=== PATIENT | female | born 1980 | race Caucasian/White ===

== ENCOUNTER 2020-11-11 06:54 | Outpatient (NON) | payer OTHER, SELFPAY ==
[2020-11-11 22:09] LABS: SARS-CoV-2 RNA PCR Negative
== END 2020-11-11 06:55 ==
LOC: ANHCOVIDDT 07:02
PROVIDERS: PCP Family Medicine; Visit Provider Nurse Practitioner Family
DX: R05 Cough (principal); Z20.828 Contact with and (suspected) exposure to other viral communicable diseases
CPT/HCPCS: 87635; C9803; U0003

== ENCOUNTER 2021-03-31 16:13 | Outpatient (CLI) | payer OTHER, SELFPAY ==
--- NOTE | ~2021-03-31 | XR_ITS ---
XR chest 2V DATE: 03/31/2021 16:29 INDICATION: Right-sided chest TECHNIQUE: PA and lateral chest COMPARISON: 11/01/2016 PA and lateral chest FINDINGS: Normal heart size. No hilar or mediastinal enlargement. No pulmonary infiltrate or consolid ation, pleural effusion or pulmonary vascular congestion or pneumothorax. Osteopenia. IMPRESSION: No active cardiopulmonary disease Reviewed, dictated and finalized at location B.
== END 2021-03-31 16:14 | disposition home or self-care (01) ==
LOC: ANHIMG 16:16
PROVIDERS: PCP Family Medicine; Visit Provider Family Medicine
DX: R07.89 Other chest pain (principal)
CPT/HCPCS: 71046

== ENCOUNTER 2021-04-19 08:41 | Outpatient (CLI) | payer OTHER, SELFPAY ==
--- NOTE | ~2021-04-19 | XR_ITS ---
EXAMINATION: XR barium swallow EXAM DATE: 04/19/2021 09:21 INDICATION: R13.10 - Dysphagia, unspecified . Inhaled sawdust and shortness of breath since. TECHNIQUE: Standard thick followed by thin contrast barium esophagram examination was performed by Dr Janina Bustos, radiologist. Pulsed dose reduction fluoroscopy was used with fluoroscopic time of 0.5 minutes. The DAP for this procedure was 0.3 Gycm2. A total of 69 images obtained for the exam. Th ere is no prior study for comparison. FINDINGS: The pharynx is symmetric and without evidence of mass lesion or mucosal irregularity. Ther e is no esophageal stricture or mass identified. There are no esophageal diverticula. Gastroesophag eal junction is normal in appearance. IMPRESSION: Normal exam. Reviewed, dictated and finalized at location A. IMPRESSION: Normal exam.
== END 2021-04-19 08:42 | disposition home or self-care (01) ==
PROVIDERS: PCP Family Medicine; Visit Provider Otolaryngology
DX: R13.10 Dysphagia, unspecified (principal)
CPT/HCPCS: 74220

== ENCOUNTER 2021-07-31 16:57 | Emergency (ER) | payer OTHER, SELFPAY ==
--- NOTE | ~2021-07-31 | CT_ITS ---
EXAMINATION: CT abdomen pelvis wo con DATE: 07/31/2021 17:50 INDICATION: Right lower quadrant abdominal pain TECHNIQUE: Computed tomography (CT) of the abdomen and pelvis was performed without intravenous contr ast. Automated exposure control and iterative reconstruction technique were employed. Exam dose: 467 .81 mGy-cm total exam DLP. COMPARISON: January 08, 2019 CT abdomen pelvis FINDINGS: The lung bases are clear. Normal heart size. No pericardial or pleural effusion. The liver, gallbladder, spleen, pancreas, and adrenal glands and kidneys are unremarkable on this brambila ited noncontrast examination. There is an IUD within the uterus. 3.6 cm left adnexal dermoid containing fat and calcification. Normal caliber of the abdominal aorta. No intraperitoneal or retroperitoneal or pelvic mass lesion or adenopathy or ascites is noted otherwise. The urinary bladder is unremarkable. Normal appendix. There is a prominent amount of fecal material within the colon but no bowel obstruct ion, bowel wall thickening, pneumatosis or intraperitoneal free air. Included skeletal structures are unremarkable. IMPRESSION: 3.6 cm left sided dermoid IUD within uterus Normal appendix Reviewed, dictated and finalized at Location A. Reviewed, dictated and finalized at location A.
[2021-07-31 16:58] VITALS: BP 130/80; PULSE 63; RESP 20; TEMP 36.5; O2SAT 100
--- NOTE | 2021-07-31 17:04 | ED.ABDPAIN ---
HPI - Abdominal Pain General Chief Complaint: Abdominal Pain Stated Complaint: abd pain Time Seen by Provider: 07/31/21 17:01 Source: RN notes reviewed History of Present Illness HPI narrative: Patient presents emergency department from home for abdominal pain. Patient states the pain began yesterday and is located right lower quadrant. Pain is described as sharp and stabbing does not radiate. Patient states that the makes the pain better or worse. States she tried taking ibuprofen at home with no relief. She denies any fevers or chills, chest pain, shortness of breath, nausea vomiting diarrhea or any other symptoms Related Data Home Medications Medication Instructions Recorded Confirmed levonorgestrel 20 mcg/24 hours (6 1 device I-UTERINE ONCE 10/14/19 07/09/21 yrs) 52 mg intrauterine device Allergies Allergy/AdvReac Type Severity Reaction Status Date / Time ciprofloxacin Allergy Unknown rash Verified 07/09/21 13:04 clindamycin Allergy Unknown unknown Verified 07/09/21 13:04 doxycycline Allergy Unknown abdominal Verified 07/09/21 13:04 pain erythromycin base Allergy Unknown rash Verified 07/09/21 13:04 iodine Allergy Unknown rash Verified 07/09/21 13:04 penicillin G Allergy Unknown rash Verified 07/09/21 13:04 Penicillins Allergy Unknown Skin Verified 07/09/21 13:04 irritation Review of Systems Review of Systems: Gen.: Denies fevers or chills ENT: Denies congestion Respiratory: Denies shortness of breath or cough CV: Denies chest pain or palpitations GI: See HPI denies burning, urgency, frequency or hematuria Musculoskeletal: Denies back pain or muscle pain Neuro: Denies numbness, tingling, weakness or focal weakness Skin: Denies rash Except as documented, all other systems reviewed and negative FORMERLY [facility], [facility] Past Medical History Medical History HLD (hyperlipidemia) Surgical History Surgical History H/O ovarian cystectomy Family History Family History Mother Carcinoma of colon Family history of cardiovascular disease Father Family history of malignant neoplasm of kidney Social History Social History (Reviewed 07/31/21 @ 17:05 by CHAPIS Isbell Smoking status: Never smoker Second hand tobacco smoke exposure: No Alcohol intake: never Substance use: never Substance use type: does not use Gender identity (if verbalized by the patient): Female Exam Narrative: APPEARANCE: No acute distress, nontoxic, resting in bed HEENT: Normocephalic, atraumatic, OMM RESPIRATORY: No respiratory distress, clear to auscultation bilaterally with no rhonchi wheezing or rales CARDIOVASCULAR: RRR s murmur ABDOMINAL: Soft nondistended tender palpation right lower quadrant no tenderness in right upper quadrant, left lower quadrant left lower quadrant no rebound or guarding MUSCULOSKELETAl: Moves all extremities. No clubbing, cyanosis or edema. NEURO: Awake and alert. Following commands, speech normal, no focal deficits SKIN:: Warm, dry. Normal Color PSYCHIATRIC: Normal affect/mood Course Course Emergency Course: Patient states that they are feeling much better at this time. States abdominal pain has improved. Repeat abdominal exam shows the patient's abdomen to be soft with no surgical abdomen present. Discussed with patient results of workup and diagnosis. Discussed need for follow-up with primary care physician, reasons to return to the emergency department in proper use of medication. Patient understands and agrees to current treatment plan. Discussed with patient dermoid cyst she is followed by Dr. Maxwell and will follow up Vital Signs Vital signs: Vital Signs Temperature 97.7 F 07/31/21 16:58 Pulse Rate 63 07/31/21 16:58 Respiratory Rate 20 07/31/21 16:58 Blood Pressure 130/80 07/31/21 16:58 Pulse Oximetry
[2021-07-31] MEDS: SODIUM CHLORIDE 0.9% IV 1,000 ML 999 ML IV CONT (17:50)
[2021-07-31 18:01] LABS: Basophils Percent Auto 0.4 % (0.2-1.2); Eosinophils Absolute Auto 0.3 K/mm3 (0-0.3); Eosinophils Percent Auto 3.1 % (0-4.4); Hematocrit 43.5 % (37.0-47.0); Hemoglobin 14.4 g/dL (12.0-15.0); Immature Granulocyte Absolute 0.03 K/mm3 (0.00-0.031); Immature Granulocyte Percent A 0.4 % (0-0.5); Lymphocytes Absolute Auto 2.46 K/mm3 (0.9-3.2); Lymphocytes Percent Auto 30.5 % (18.3-44.2); Mean Corpuscular HGB Conc 33.1 g/dl (32-36); Mean Corpuscular Hemoglobin 31.2 pg (26-34); Mean Corpuscular Volume 94.2 fl (80-100); Mean Platelet Volume 10.3 fl (7.4-10.4); Monocytes Absolute Auto 0.5 K/mm3 (0.1-0.6); Monocytes Percent Auto 5.8 % (2.6-8.5); Neutrophils Absolute Auto 4.8 K/mm3 (1.3-6.7); Neutrophils Percent Auto 59.8 % (45.5-73.1); Platelet Count Result 216 k/mm3 (150-375); Red Blood Count 4.62 M/mm3 (4.2-5.4); Red Cell Distribution Width 12.7 % (11.5-14.5); White Blood Count 8.1 K/mm3 (4.5-10.0)
[2021-07-31 18:14] LABS: Alanine Aminotransferase 12 U/L (4-35); Albumin Level 4.4 g/dL (3.5-5.1); Alkaline Phosphatase 59 U/L (38-126); Anion Gap 8 mmol/L (8-16); Aspartate Amino Transferase 23 U/L (14-36); Bilirubin,Total 0.7 mg/dL (0.2-1.3); Blood Urea Nitrogen 12 mg/dL (7-17); Calcium 9.1 mg/dL (8.4-10.2); Carbon Dioxide 25 mmol/L (22-30); Chloride 106 mmol/L (98-107); Estimated CRCL calculation 113 ml/min; Estimated Glomerular Filt Rate > 60; Glucose 107 mg/dL (65-110); Lipase 101 U/L (23-300); Potassium 3.4 mmol/L (3.4-5.0); Sodium 139 mmol/L (137-145)
[2021-07-31 18:54] LABS: Add Urine Microscopic? YES; Appearance Urine Clear (Clear); Bilirubin Urine Negative (Negative); Blood Urine 1+ (Negative); Color Urine Straw (Yellow); Glucose Urine UA Negative (Negative); Ketones Urine Negative (Negative); Leukocyte Esterase Ur Negative LEU/UL (Negative); Nitrate Urine Negative (Negative); Protein Urine Negative (Negative); Squamous Epithelial Cell Urine Rare /hpf (Few); Urobilinogen Urine Negative mg/dL (<2.0); WBC Urine 0-3 /hpf
[2021-07-31 19:30] VITALS: BP 110/66; PULSE 66; RESP 18; O2SAT 100
[2021-07-31 20:20] VITALS: BP 109/59; PULSE 66; RESP 18; TEMP 37; O2SAT 100
== END 2021-07-31 20:20 | disposition home or self-care (01) ==
PROVIDERS: Emergency Provider Emergency Medicine; PCP Family Medicine
DX: R10.31 Right lower quadrant pain (principal); D27.1 Benign neoplasm of left ovary; E78.5 Hyperlipidemia, unspecified; Z97.5 Presence of (intrauterine) contraceptive device
CPT/HCPCS: 36415; 74176; 80053; 81001; 81025; 83690; 85025; 96361; 96365; 99284; J0131; J7030

== ENCOUNTER → 2021-09-02 02:57 | Outpatient (CLI) | payer OTHER, SELFPAY ==
[2021-09-02 17:42] LABS: SARS-CoV-2 RNA PCR Negative
== END ==
PROVIDERS: PCP Family Medicine; Visit Provider Nurse Practitioner Family
DX: R50.9 Fever, unspecified (principal); Z20.822 Contact with and (suspected) exposure to COVID-19
CPT/HCPCS: C9803; U0003; U0005

== ENCOUNTER → 2021-11-18 09:25 | Outpatient (CLI) | payer OTHER, SELFPAY ==
[2021-11-18 12:41] LABS: Influenza Control Positive
[2021-11-18 20:55] LABS: SARS-CoV-2 RNA PCR Negative
== END ==
PROVIDERS: PCP Family Medicine; Visit Provider Physician Assistant
DX: R05.9 Cough, unspecified (principal); R09.89 Other specified symptoms and signs involving the circulatory and respiratory systems; Z20.822 Contact with and (suspected) exposure to COVID-19
CPT/HCPCS: 87804; C9803; U0003; U0005

== ENCOUNTER 2022-06-23 12:40 | Outpatient (CLI) | payer OTHER, SELFPAY ==
--- NOTE | ~2022-06-23 | US_ITS ---
EXAMINATION: US pelvic complete w TV DATE: 06/23/2022 14:02 INDICATION: Benign neoplasm of the ovary. Comparison:CT dated 07/31/2021 TECHNIQUE: Multiple transabdominal and endovaginal sonographic images of the pelvis performed. FINDINGS: The uterus measures 8.1 x 3.7 x 5.7 cm. The endometrial complex measures 5 mm. The right ovary measures 4.2 x 2 x 1.8 cm and the left ovary measures 2.5 x 1.6 x 1.9 cm.. There are small follicles in each ovary. Normal doppler signal in both ovaries. The dermoid seen on prior exam ination in the left adnexa is not visualized on the current study. Correlate for history of surgical resection. There is no free fluid in the pelvis. There are no abnormal masses seen on either side. IMPRESSION: 1. Unremarkable pelvic ultrasound. No left adnexal mass identified on the current study. Correlate fo r surgical history. Reviewed, dictated and finalized at location A. IMPRESSION: 1. Unremarkable pelvic ultrasound. No left adnexal mass identified on the curre nt study. Correlate for surgical history.
== END 2022-06-23 12:41 | disposition home or self-care (01) ==
PROVIDERS: PCP Family Medicine; Visit Provider Obstetrics & Gynecology
DX: D27.9 Benign neoplasm of unspecified ovary (principal)
CPT/HCPCS: 76830; 76856

== ENCOUNTER → 2022-09-07 08:38 | Outpatient (CLI) | payer OTHER, SELFPAY ==
--- NOTE | ~2022-09-07 | MR_ITS ---
EXAMINATION: MR pelvis wo/w con DATE: 09/07/2022 09:54 INDICATION: Benign neoplasm of unspecified ovary. TECHNIQUE: Magnetic resonance imaging (MRI) of the pelvis was performed without and with 13 mL MultiH ance intravenous contrast. COMPARISON: CT abdomen and pelvis 07/31/2021, pelvis ultrasound 06/23/2022 FINDINGS: There are no dilated loops of bowel. The uterus is normal in morphology. There is an intrauterine dev ice in expected position. The endometrial complex is normal and measures 5 mm. There is a 3.5 x 3.2 c m mass with fat in left adnexa, consistent with a dermoid. Right ovary is normal. There are no pathol ogically enlarged lymph nodes. There is no free intraperitoneal fluid. IMPRESSION: 1. 3.5 cm dermoid in left adnexa, stable from 07/31/2021. Reviewed, dictated and finalized at location A.
== END ==
PROVIDERS: PCP Family Medicine; Visit Provider Obstetrics & Gynecology
DX: D27.1 Benign neoplasm of left ovary (principal)
CPT/HCPCS: 72197; A9577

== ENCOUNTER 2022-12-09 03:49 | Day surgery (SDC) | payer OTHER, SELFPAY ==
[2022-11-25 14:23] VITALS: BMI 24.2
--- NOTE | 2022-12-08 14:33 | PM.HPGS ---
History of Present Illness History of Present Illness Consent: Risks, benefits, and alternatives have been discussed and questions answered. Patient agrees to proceed with procedure. Chief complaint: family hx colon ca Narrative: Opal Gold is a 42 year old female Referred for colon cancer screening. Her mother had colon cancer. Review of Systems Review of Systems: All systems reviewed & are unremarkable except as noted in HPI and below PMFSH Past Medical History Medical History Family history of colon cancer HLD (hyperlipidemia) Hypothyroidism Surgical History Surgical History H/O ovarian cystectomy x 2 Family History Family History Mother Carcinoma of colon Family history of cardiovascular disease Father Family history of malignant neoplasm of kidney Social History Social History Smoking status: Never smoker Second hand tobacco smoke exposure: No Alcohol intake: never Substance use: never Substance use type: does not use Living arrangements: with family Occupation/Education: occupation Gender identity (if verbalized by the patient): Female Sexual Orientation (if Verbalized by the Patient): Straight or Heterosexual Spiritual care concerns: No Meds Home Medications and Allergies Home Medications Medication Instructions Recorded Confirmed Type levonorgestrel 20 mcg/24 hours (8 1 device intrauterine ONCE 10/14/19 11/25/22 History yrs) 52 mg intrauterine device (Mirena) levothyroxine 112 mcg tablet See Rx Instructions .Route 07/04/22 11/25/22 Rx .COMPLEX #90 tabs diphenhydramine HCl 25 mg capsule 25 mg PO QHS PRN Sleep 09/13/22 11/25/22 History (Benadryl) Allergies Allergy/AdvReac Type Severity Reaction Status Date / Time ciprofloxacin Allergy Unknown rash Verified 11/25/22 14:17 clindamycin Allergy Unknown unknown Verified 11/25/22 14:17 doxycycline Allergy Unknown abdominal Verified 11/25/22 14:17 pain erythromycin base Allergy Unknown rash Verified 11/25/22 14:17 iodine Allergy Unknown rash Verified 11/25/22 14:17 penicillin G Allergy Unknown rash Verified 11/25/22 14:17 Penicillins Allergy Unknown Skin Verified 11/25/22 14:17 irritation Exam Const: General: alert Orientation/consciousness: patient oriented x3 Resp: Auscultation: clear to auscultation bilaterally Cardio: Rhythm: regular rhythm GI: GI Palp: Yes Soft to palpation and No Tenderness to palpation present (GI) Neuro: General: patient oriented x3 Assessment and Plan Assessment and plan (1) Colon cancer screening: Code(s): Z12.11 - Encounter for screening for malignant neoplasm of colon Status: Acute Assessment and Plan: Colonoscopy with possible biopsy or polypectomy or cautery or injection of substances.
[2022-12-09 09:13] VITALS: BP 119/76; PULSE 70; RESP 20; TEMP 36.2; O2SAT 99
--- NOTE | 2022-12-09 09:31 | WPDANESEPPF ---
Anes - Initial Pre Proc Eval Procedure: Operation Date: 12/09/22 10:00 Proposed Procedures p Screening Colonoscopy - Kamar Macias MD Date/Time: 12/09/22 09:31 Surgeon: Kamar Macias MD Pre Op Diagnosis: family hx colon ca Patient Data Age: 42 Gender: F Height: 1.68 m Weight: 72.6 kg Last Vital Signs Temp 36.2 C L 12/09/22 09:13 Pulse 70 12/09/22 09:13 Resp 20 12/09/22 09:13 BP 119/76 12/09/22 09:13 Pulse Ox 99 12/09/22 09:13 O2 Del Method Room Air 12/09/22 09:13 Allergies Allergy/AdvReac Type Severity Reaction Status Date / Time ciprofloxacin Allergy Unknown rash Verified 12/09/22 09:15 clindamycin Allergy Unknown unknown Verified 12/09/22 09:15 doxycycline Allergy Unknown abdominal Verified 12/09/22 09:15 pain erythromycin base Allergy Unknown rash Verified 12/09/22 09:15 iodine Allergy Unknown rash Verified 12/09/22 09:15 penicillin G Allergy Unknown rash Verified 12/09/22 09:15 Penicillins Allergy Unknown Skin Verified 12/09/22 09:15 irritation Home Medications Medication Instructions Recorded Confirmed Type levonorgestrel 20 mcg/24 hours (8 1 device intrauterine ONCE 10/14/19 12/09/22 History yrs) 52 mg intrauterine device (Mirena) levothyroxine 112 mcg tablet See Rx Instructions .Route 07/04/22 12/09/22 Rx .COMPLEX #90 tabs diphenhydramine HCl 25 mg capsule 25 mg PO QHS PRN Sleep 09/13/22 12/09/22 History (Benadryl) Patient hx anesthesia problems: none Family hx anesthesia problems: none Results Review: All pre-operative results and documents have been reviewed as part of the pre-operative evaluation. FORMERLY [facility], [facility] Past Medical History Medical History Family history of colon cancer HLD (hyperlipidemia) Hypothyroidism Surgical History Surgical History H/O ovarian cystectomy x 2 Family History Family History Mother Carcinoma of colon Family history of cardiovascular disease Father Family history of malignant neoplasm of kidney Social History Social History Smoking status: Never smoker Second hand tobacco smoke exposure: No Alcohol intake: never Substance use: never Substance use type: does not use Living arrangements: with family Occupation/Education: occupation Gender identity (if verbalized by the patient): Female Sexual Orientation (if Verbalized by the Patient): Straight or Heterosexual Spiritual care concerns: No Anes - Eval Final PreProcedure Day of Procedure 12/09/22 09:31 Patient weight: normal Heart: regular rate and rhythm Lungs: clear to auscultation and normal air movement Airway: Mallampati scale class II Neurological: alert and oriented Last oral intake: >/= 8 hours ASA classification: II Emergent: no Anesthetic plan: proceed Anesthesia type and monitoring: general GIVS Results Review: All pre-operative results and documents have been reviewed as part of the pre-operative evaluation. Informed Consent: The patient's anesthetic plan and its attendant risks and benefits were discussed with the patient/family/POA. Questions were solicited and answers provided to the satisfaction of the patient/family/POA.
[2022-12-09] MEDS: LACTATED RINGERS 1,000 ML 150 ML IV CONT (09:32)
[2022-12-09 10:12] VITALS: BP 123/82; PULSE 82; RESP 16; TEMP 36.2; O2SAT 100
[2022-12-09 10:22] VITALS: BP 128/76; PULSE 79; RESP 20; TEMP 36.2; O2SAT 100
[2022-12-09 10:32] VITALS: BP 127/78; PULSE 64; RESP 18; TEMP 36.2; O2SAT 100
[2022-12-09 10:40] VITALS: BP 136/80; PULSE 62; RESP 22; TEMP 36.2; O2SAT 100
== END 2022-12-09 10:42 | disposition home or self-care (01) ==
PROVIDERS: PCP Family Medicine; Visit Provider Internal Medicine Gastroenterology
PROC: 0DJD8ZZ Inspection of Lower Intestinal Tract, Via Natural or Artificial Opening Endoscopic (ICD-10-PCS; CPT 45378; principal; 2022-12-09 10:00)
DX: Z12.11 Encounter for screening for malignant neoplasm of colon (principal); K64.8 Other hemorrhoids; Z86.010 Personal history of colon polyps; Z80.0 Family history of malignant neoplasm of digestive organs; E78.5 Hyperlipidemia, unspecified; E03.9 Hypothyroidism, unspecified
CPT/HCPCS: 45378; J2704; J7120

== ENCOUNTER 2023-02-05 15:05 | Emergency (ER) | payer OTHER, SELFPAY ==
[2023-02-05 15:54] VITALS: BP 135/92; PULSE 79; RESP 16; TEMP 36.8; O2SAT 98
--- NOTE | 2023-02-05 16:09 | PC.NURSE ---
Pt ambulates back to exam room without issues. Pt states that when she was last developed varicose on her left leg. Pt states about 6 days ago she started noticing pain in her left knee, thigh, and groin area of her left leg. Pt states the pain continued and this morning she noticed swelling to her left knee and thigh. Pt called her PCP who recommended pt goes to the ER for a possible clot. Pt states the area around her left knee was red earlier in the day but has had ice on the area and believes it helped with the redness. Denies any SOB or chest pain
--- NOTE | 2023-02-05 17:37 | ED.GENADULT ---
HPI - General Adult General Chief complaint: Extremity Problem,Nontraumatic Stated complaint: varicose vein pain and swelling Time Seen by Provider: 02/05/23 16:15 History of Present Illness HPI narrative: Opal Marcus is a 42 y/o female who presents today with complaints of pain and swelling to her left lower extremity. 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 She reports that her pain to one of her varicose veins became acutely worse after ambulating yesterday and it was painful to touch and then she was concerned that her leg was swelling and the pain was radiating up her leg. She called her PCP and they encouraged her to be evaluated in the ED> Related Data Home Medications Medication Instructions Recorded Confirmed levonorgestrel 21 mcg/24 hours (8 1 device intrauterine ONCE 10/14/19 12/09/22 yrs) 52 mg intrauterine device (Mirena) diphenhydramine HCl 25 mg capsule 25 mg PO QHS PRN Sleep 09/13/22 12/09/22 (Benadryl) Allergies Allergy/AdvReac Type Severity Reaction Status Date / Time ciprofloxacin Allergy Unknown rash Verified 02/05/23 15:08 clindamycin Allergy Unknown unknown Verified 02/05/23 15:08 doxycycline Allergy Unknown abdominal Verified 02/05/23 15:08 pain erythromycin base Allergy Unknown rash Verified 02/05/23 15:08 iodine Allergy Unknown rash Verified 02/05/23 15:08 penicillin G Allergy Unknown rash Verified 02/05/23 15:08 Penicillins Allergy Unknown Skin Verified 02/05/23 15:08 irritation Review of Systems Review of Systems: CONSTITUTIONAL: Denies fever, chills, or sweats. EYES: Denies visual changes, redness, or discharge. ENT: Denies rhinorrhea, congestion, sore throat, or otalgia. CARDIOVASCULAR: Denies chest pain, palpitations, or edema. RESPIRATORY: Denies cough or dyspnea. GASTROINTESTINAL: Denies abdominal pain, nausea, vomiting, or diarrhea. GENITOURINARY: Denies dysuria or hematuria. SKIN: Denies rash or itching. MUSCULOSKELETAL: Denies back pain, Complains of pain to left lower extremity more to the medial knee where her varicose vein is and then up her thigh NEUROLOGIC: Denies headache, numbness, dizziness, or weakness. PSYCHIATRIC: Denies anxiety or depression. [facility] Past Medical History Medical History Family history of colon cancer HLD (hyperlipidemia) Hypothyroidism Surgical History Surgical History H/O ovarian cystectomy x 2 Family History Family History Mother Carcinoma of colon Family history of cardiovascular disease Father Family history of malignant neoplasm of kidney Social History Social History Smoking status: Never smoker Second hand tobacco smoke exposure: No Alcohol intake: never Substance use: never Substance use type: does not use Living arrangements: with family Occupation/Education: occupation Gender identity (if verbalized by the patient): Female Sexual Orientation (if Verbalized by the Patient): Straight or Heterosexual Spiritual care concerns: No Exam Narrative: GENERAL: Well-appearing, well-nourished, and in no acute distress. HEAD: Normocephalic, atraumatic. EYES: PERRLA and EOMI. ENT: Nares clear, no rhinorrhea or epistaxis. Mucous membranes moist. Oropharynx without tonsillar hypertrophy exudate or other lesions. Bilateral TMs pearly gage nonbulging NECK: Supple. No adenopathy or masses. No carotid bruits or JVD CHEST: Clear to auscultation. No respiratory distress. No wheezes rales or rhonchi HEART: Regular rate and rhythm. No murmur heard. Normal peripheral pulses. ABDOMEN: Soft, nontende
[2023-02-05] MEDS: ENOXAPARIN 80 MG/0.8 ML SYRINGE 70 MG SUB-Q (18:32)
[2023-02-05 18:42] VITALS: BP 133/87; PULSE 67; RESP 18; TEMP 36.8; O2SAT 97
== END 2023-02-05 18:54 | disposition home or self-care (01) ==
PROVIDERS: Emergency Provider Nurse Practitioner Family; PCP Family Medicine
DX: M79.89 Other specified soft tissue disorders (principal); I83.813 Varicose veins of bilateral lower extremities with pain; E78.5 Hyperlipidemia, unspecified; E03.9 Hypothyroidism, unspecified
CPT/HCPCS: 96372; 99283; J1650

== ENCOUNTER 2023-02-06 07:10 | Outpatient (CLI) | payer OTHER, SELFPAY ==
--- NOTE | ~2023-02-06 | US_ITS ---
Duplex Sonography of the left extremity: Indication: Swelling Findings: Sagittal and transverse B-mode images as well as color-flow imaging were performed on the l eft femoral and popliteal veins. B-mode examination was done without and with compression in the tra nsverse plane. There is good visualization of the common femoral, proximal profunda femoral, superfi cial femoral, greater saphenous, and popliteal veins. Normal flow was seen on color-flow imaging. No rmal compressibility was demonstrated. Left posterior tibial and peroneal veins are also patent. Impression: No evidence of deep vein thrombosis involving the left lower extremity. Reviewed, dictated and finalized at location M. Impression: No evidence of deep vein thrombosis involving the left lower extremity.
== END 2023-02-06 07:11 | disposition home or self-care (01) ==
PROVIDERS: PCP Family Medicine; Visit Provider Nurse Practitioner Family
DX: M79.89 Other specified soft tissue disorders (principal)
CPT/HCPCS: 93971

== ENCOUNTER 2024-01-03 10:11 | Outpatient (CLI) | payer OTHER, SELFPAY ==
--- NOTE | 2024-01-03 10:17 | ECG_ITS ---
Measurements Intervals Early Branch Rate: 72 P: 53 OR: 146 QRS: 55 QRSD: 86 T: 43 QT: 396 QTc: 434 Interpretive Statements SINUS RHYTHM NORMAL ECG NO PREVIOUS ECG AVAILABLE FOR COMPARISON Electronically Signed On 01-03-2024 16:25:42 [employer]HE[employer] MACHINE OPERATOR by Joshua Alvarado M.D.
== END 2024-01-03 10:12 | disposition home or self-care (01) ==
LOC: ANHSURGERY 10:14
PROVIDERS: PCP Family Medicine; Visit Provider Obstetrics & Gynecology
DX: D27.9 Benign neoplasm of unspecified ovary (principal); E78.5 Hyperlipidemia, unspecified; Z01.818 Encounter for other preprocedural examination
CPT/HCPCS: 36415; 86850; 86900; 86901; 93005

== ENCOUNTER 2024-01-05 01:02 | Day surgery (SDC) | payer OTHER, SELFPAY ==
[2023-12-28 09:23] VITALS: BMI 25.8
--- NOTE | 2023-12-28 09:27 | PC.NURSE ---
Report to the Outpatient Waiting Room, entrance under the green pavilion located off [facility], at time 6:00 on date 01/05/24. Planned Procedure Time: 7:30. Time changes happen often and if your time is changed the preop area will call you the afternoon before. - You and your visitor will be asked to self-screen and do not enter if you have any COVID symptoms. - A mask is optional within the hospital at this time. Patients may have clear liquids (water, carbonated beverages, clear teas, apple juice) until 3 hours prior to surgery (4:30) with a maximum of 20 ounces. - No food from midnight until time of surgery Take the following medications with a SIP of water the morning of surgery: NONE DO NOT STOP ANY OF YOUR OTHER PRESCRIPTION MEDICATIONS PRIOR TO SURGERY ?EXCEPT THE FOLLOWING Medications to discontinue per physician: VITAMINS Date to take last dose: 01/01/24 Please no make-up, nail croatian, hairspray, perfume, deodorant, or body powder the day of surgery. No jewelry (including any body piercings) or valuables the day of surgery, leave them at home. Please take a shower or bath the night before, or the morning of, surgery with an antibacterial soap. Wear comfortable, loose fitting clothing. - Jewelry must be removed prior to entering the operating room. Rings and piercings that are not removed may be cut off. - The hospital will not accept responsibility for valuables. - Please leave all valuables, including medications, at home the day of surgery. If you are going home after surgery, a licensed passenger coach driver must drive you home. - NO public transportation without another adult if you receive anesthesia. - We recommend that an adult stay with you for 24 hours following discharge. - We also recommend that you do not drive, make important decision, drink alcoholic beverages, or take any drugs that were not prescribed by your health care provider for at least 24 hours after your discharge time. Follow any additional instructions given to you from your surgeon. If you or anyone in your household have experienced Covid symptoms in the past week, please notify your surgeon or the nurse liaison at the phone number below for possible testing. Telephone instructions given to PT - AUBREY JUNG and asked if any additional questions and then verbalized understanding. Patient advised to call surgeon office or pre surgery nurse liaison [phone] if any additional questions.
--- NOTE | 2024-01-04 13:05 | PM.IMHP ---
H&P: HPI History of Present Illness Date/Time: 01/04/24 13:05 Chief Complaint: Dermoid cyst Narrative: She is a 43y/o P2 with a known dermoid cyst on the left ovary that has been followed. She is asymptomatic. Cyst has increased from 2.5 to 3.5 cm. She is asymptomatic. She has opted for removal. She is aware that usually the cyst take up the ovary which will usually need to be removed with it. She also has satisfied parity and would like bilateral salpingectomy for sterilization. She is using Mirena for sterilization and menstrual flow control and will keep the Mirena for improved menstrual flow. Review of Systems Review of Systems: All systems reviewed & are unremarkable except as noted in HPI and below Cardiovascular: Cardiovascular: Reports no additional cardiovascular complaints, Denies chest pain and Denies dyspnea Respiratory: Respiratory: Reports no additional respiratory complaints and Denies dyspnea Gastrointestinal: Gastrointestinal: Reports abdominal pain, Denies change in bowel habits, Denies diarrhea, Denies nausea and Denies vomiting Genitourinary: Genitourinary: Reports pelvic pain Musculoskeletal: Musculoskeletal: Reports back pain Integumentary/Breasts: Skin/Breast: Reports system reviewed and no additional complaints, except as docu Neurologic: Reports system reviewed and no additional complaints, except as documented PMFSH Past Medical History Medical History Family history of colon cancer HLD (hyperlipidemia) Hypothyroidism Surgical History Surgical History H/O ovarian cystectomy x 2 Family History Family History Mother Carcinoma of colon Family history of cardiovascular disease Father Family history of malignant neoplasm of kidney Social History Social History Smoking status: Never smoker Second hand tobacco smoke exposure: No Alcohol intake: current Alcohol use details: VERY RARE Substance use: never Substance use type: does not use Living arrangements: with family Occupation/Education: occupation Gender identity (if verbalized by the patient): Female Sexual Orientation (if Verbalized by the Patient): Straight or Heterosexual Spiritual care concerns: No Meds Home Medications and Allergies Home Medications Medication Instructions Recorded Confirmed Type levonorgestrel 21 mcg/24 hours (8 1 device intrauterine ONCE 03/08/23 12/28/23 History yrs) 52 mg intrauterine device (Mirena) ergocalciferol (vitamin D2) 1,250 1,250 mcg PO WEEKLY #12 caps 03/15/23 12/28/23 Rx mcg (50,000 unit) capsule levothyroxine 112 mcg tablet See Rx Instructions .Route 12/25/23 12/28/23 Rx .COMPLEX #90 tabs rosuvastatin 5 mg tablet See Rx Instructions .Route 12/25/23 12/28/23 Rx .COMPLEX #90 tabs diphenhydramine HCl 25 mg capsule 25 mg PO HS 12/28/23 12/28/23 History (Benadryl) Allergies Allergy/AdvReac Type Severity Reaction Status Date / Time ciprofloxacin Allergy Unknown rash Verified 12/28/23 09:21 clindamycin Allergy Unknown unknown Verified 12/28/23 09:21 doxycycline Allergy Unknown abdominal Verified 12/28/23 09:21 pain erythromycin base Allergy Unknown rash Verified 12/28/23 09:21 iodine Allergy Unknown rash Verified 12/28/23 09:21 Penicillins Allergy Unknown Skin Verified 12/28/23 09:21 irritation Exam Const: Orientation/consciousness: oriented to person and oriented to place HENMT: Head: normal to inspection Eyes: General: appearance normal, both eyes and all related structures Resp: Effort & Inspection: normal respiratory effort Auscultation: clear to auscultation bilaterally Cardio: Rate: regular rate Rhythm: regular rhythm GI: Inspection: normal to inspection GI Palp: No Rebound tenderness pr
[2024-01-05] VITALS (14 sets, daily range): BP systolic 106–125; BP diastolic 66–83; PULSE 64–83; RESP 12–16; TEMP 36.5–36.6; O2SAT 98–100
[2024-01-05] MEDS: LACTATED RINGERS 1,000 ML 30 ML IV CONT ×3 (06:52→11:55)
[2024-01-05] MEDS: ACETAMINOPHEN 500 MG TABLET 1000 MG PO (06:55)
[2024-01-05] MEDS: KETOROLAC 15 MG/ML VIAL (*BKC) IV PUSH (06:57)
--- NOTE | 2024-01-05 07:12 | WPDANESEPPF ---
Anes - Initial Pre Proc Eval Procedure: Operation Date: 01/05/24 07:30 Proposed Procedures p Robotic Assisted Laparoscopic Ovarian Dermoid Removal, Bilateral Salpingectomy, Left Oophorectomy - Chavo Maxwell MD Date/Time: 01/05/24 07:12 Surgeon: Chavo Maxwell MD Pre Op Diagnosis: dermoid cyst of ovaries, desires sterilization Patient Data Age: 43 Gender: F Height: 1.68 m Weight: 75.2 kg Last Vital Signs Temp 97.9 F 01/05/24 06:36 Pulse 72 01/05/24 06:36 Resp 16 01/05/24 06:36 BP 122/79 01/05/24 06:36 Pulse Ox 98 01/05/24 06:36 O2 Del Method Room Air 01/05/24 06:36 Allergies Allergy/AdvReac Type Severity Reaction Status Date / Time ciprofloxacin Allergy Unknown rash Verified 01/05/24 06:16 clindamycin Allergy Unknown unknown Verified 01/05/24 06:16 doxycycline Allergy Unknown abdominal Verified 01/05/24 06:16 pain erythromycin base Allergy Unknown rash Verified 01/05/24 06:16 iodine Allergy Unknown rash Verified 01/05/24 06:16 Penicillins Allergy Unknown Skin Verified 01/05/24 06:16 irritation Home Medications Medication Instructions Recorded Confirmed Type levonorgestrel 21 mcg/24 hours (8 1 device intrauterine ONCE 03/08/23 01/05/24 History yrs) 52 mg intrauterine device (Mirena) ergocalciferol (vitamin D2) 1,250 1,250 mcg PO WEEKLY #12 caps 03/15/23 01/05/24 Rx mcg (50,000 unit) capsule levothyroxine 112 mcg tablet See Rx Instructions .Route 12/25/23 01/05/24 Rx .COMPLEX #90 tabs rosuvastatin 5 mg tablet See Rx Instructions .Route 12/25/23 01/05/24 Rx .COMPLEX #90 tabs diphenhydramine HCl 25 mg capsule 25 mg PO HS 12/28/23 01/05/24 History (Benadryl) Patient hx anesthesia problems: none Family hx anesthesia problems: none Results Review: All pre-operative results and documents have been reviewed as part of the pre-operative evaluation. [facility] Past Medical History Medical History Family history of colon cancer HLD (hyperlipidemia) Hypothyroidism Surgical History Surgical History H/O ovarian cystectomy x 2 Family History Family History Mother Carcinoma of colon Family history of cardiovascular disease Father Family history of malignant neoplasm of kidney Social History Social History Smoking status: Never smoker Second hand tobacco smoke exposure: No Alcohol intake: current Alcohol use details: VERY RARE Substance use: never Substance use type: does not use Living arrangements: with family Occupation/Education: occupation Gender identity (if verbalized by the patient): Female Sexual Orientation (if Verbalized by the Patient): Straight or Heterosexual Spiritual care concerns: No Anes - Eval Final PreProcedure Day of Procedure 01/05/24 07:12 Patient weight: normal Heart: regular rate and rhythm Lungs: clear to auscultation Airway: Mallampati scale class II Neurological: alert and oriented Last oral intake: >/= 8 hours ASA classification: II Emergent: no Anesthetic plan: proceed Anesthesia type and monitoring: general ETT and standard monitoring Results Review: All pre-operative results and documents have been reviewed as part of the pre-operative evaluation. Informed Consent: The patient's anesthetic plan and its attendant risks and benefits were discussed with the patient/family/POA. Questions were solicited and answers provided to the satisfaction of the patient/family/POA.
--- NOTE | 2024-01-05 07:18 | WPDHPUPDATE1 ---
History and Physical Update Update Date/Time: 01/05/24 07:18 History and Physical has been reviewed, including an updated exam of the patient. There are NO changes in the patient's condition. Risks, benefits, and alternatives have been discussed and questions answered. Patient agrees to proceed with procedure.
[2024-01-05] MEDS: BUPivacaine HCL 0.5% 10 ML AMP 25 ML INFILTRATE (08:14)
--- NOTE | 2024-01-05 08:40 | W.PM.PROC2 ---
Procedure Note - Detailed Date of Procedure 01/05/24 Pre-op Diagnosis dermoid cyst of ovaries, desires sterilization Post-op Diagnosis Same Procedure Performed 1. robotic assisted laparoscopic left oophorectomy with dermoid. 2. Bilateral salpingectomy Surgeon Chavo Maxwell MD Divemaster Pedro Jaime Anesthesia General Indications Patient with a known dermoid slightly increased in size recommend removal and has satisfied parity desires permanent sterilization. Findings Uterus normal fallopian tubes normal there was a 3.5 cm dermoid on the left that occupied most of the ovary. Dermoid was removed intact. No spillage. Did rupture cyst in the bag and the fluid was suction to aid with removal through the incision there was no spillage outside of the bag. Description of Procedure After informed consent was obtained patient was taken to operating room and adequate general endotracheal anesthesia was administered. She was placed in low lithotomy position and exam under anesthesia was performed. She was prepped and draped in sterile fashion catheter was inserted into the bladder. Tooth tenaculum placed on anterior lip of the cervix an acorn uterine manipulator was inserted into the cervical canal. Attention was then turned to the abdomen 5 cc of 0.5% Marcaine was injected 2 cm above the umbilicus and an incision was made a Veress needle was inserted confirmation into the abdomen was obtained with normal peritoneal pressures. A pneumoperitoneum of 15 mm per mercury was obtained and the robotic camera will import was inserted under laparoscopic visualization. Patient was placed in Trendelenburg position attention was turned to the left side of the abdomen and 5 cc of 0.5% Marcaine was injected subcutaneously and then 8 mm robotic port was inserted under laparoscopic visualization. Attention was turned to the right side and Marcaine injected subcutaneously and the incision was made and another 8 mm robotic port was inserted under laparoscopic visualization superior medial to this Marcaine was injected and a 10 mm housekeeper/laundry assistant port was inserted under laparoscopic visualization. Attention was turned to surgery console. Right fallopian tube was excised with the vessel sealer. Hemostasis was noted. The tube was removed through the port. Attention was turned to the left side and the left infundibulopelvic ligament was ligated with the vessel sealer and the fallopian tube was ligated from the broad ligament and the fallopian tube was ligated at the interstitial area near the uterus. Hemostasis was noted. The Endo-Catch bag was inserted in the left fallopian tube and ovary with the dermoid was inserted into the bag. The incision at the housekeeper/laundry assistant port was extended and the fascia was extended with scissors. The cyst was ruptured in the bag and the fluid was suction which was fatty fluid. The cyst and ovary were then grabbed with a clamp and was removed with the bag. There was no spillage. The fascia was closed in a running fashion with 0 Vicryl. The skin incisions were closed in subcuticular fashion with 4-0 Vicryl and Dermabond placed. The uterine manipulator was removed the tenaculum site was hemostatic the IUD string was visualized. Patient was extubated in the operating room. Sponge count was correct x2. She was taken to recovery in stable condition. Estimated Blood Loss 5 Urine Output 200 Packing No Pathology Yes (Right and left fallopian tube and left ovary with dermoid) Complications No immediate complications Condition Stable Disposition Same day [facility] Billing Surgery - Charge Forward: Surgery Billing
[2024-01-05] MEDS: oxyCODONE HCL (*CRX) 5 MG TAB IR PO (10:53)
--- NOTE | 2024-01-05 12:05 | SUR.PHASEII ---
PATIENT REPORTS DIZZINESS WHEN WALKING BACK FROM BATHROOM. ASKED TO LAY DOWN AND GET MORE IV FLUIDS. ENCOURAGED TO DRINK AND EAT SNACK. HOB 30 DEGREES.
== END 2024-01-05 13:32 | disposition home or self-care (01) ==
PROVIDERS: PCP Family Medicine; Visit Provider Obstetrics & Gynecology
PROC: 8E0W4CZ Robotic Assisted Procedure of Trunk Region, Percutaneous Endoscopic Approach (ICD-10-PCS; CPT 49320; principal; 2024-01-05 07:30)
DX: D27.1 Benign neoplasm of left ovary (principal); Z30.2 Encounter for sterilization; E78.5 Hyperlipidemia, unspecified; E03.9 Hypothyroidism, unspecified
CPT/HCPCS: 58661; 36415; 86850; 86900; 86901; 88305; 93005; A9270; J1100; J1170; J1885; J2250; J2704; J3010; J7030; J7120

== ENCOUNTER 2025-07-01 19:18 | Emergency (ER) | payer OTHER, SELFPAY ==
--- OUTSIDE RECORDS SUMMARY | 2025-07-01 19:20 | XMS_ITS | Clinical Summary ---
Author Organization [facility] Address [address] [place] [address] Care Team Providers Care Hop Farmer Name Role Phone Feliciano Krause MD Primary Care Provider Allergies Active Allergy Reactions Criticality Noted Date Comments Ciprofloxacin Rash Medium 05/15/2018 Clindamycin Rash Medium 05/15/2018 Doxycycline Rash Medium 05/15/2018 Iodine Rash Medium 03/23/2023 Penicillins Rash Medium Medications levonorgestrel (MIRENA) IUDIndications:Pr egnancy Contraception 1 each by intrauterine route once Active levothyroxine (SYNTHROID) 125 mcg tabletIndications :hypothyroidism Take 1 tablet (125 mcg total) by mouth nightly Active cholecalciferol, vitamin D3, (VITAMIN D3 ORAL)Indications: supplement Take 1 tablet by mouth nightly Active rosuvastatin (CRESTOR) 5 mg tabletIndications :hyperlipidemia Take 1 tablet (5 mg total) by mouth nightly Active diphenhydrAMINE 25 mg capsuleIndication s:sleep Take 1 tablet/capsule (25 mg total) by mouth nightly Active acetaminophen (TYLENOL) 500 mg tablet Take 2 tablets (1,000 mg total) by mouth every 6 (six) hours as needed for pain 30 tablet 04/19/20 23 Active ibuprofen (ADVIL,MOTRIN) 600 mg tablet Take 1 tablet (600 mg total) by mouth every 6 (six) hours as needed for pain 30 tablet 04/19/20 23 Active Active Problems Problem Noted Date Diagnosed Date Varicose veins of left lower extremity with pain 03/13/2023 History of colonic polyps 07/12/2017 Ovarian retention cyst 04/26/2017 Intrauterine contraceptive device threads lost 0 04/11/2017 Dysuria 01/22/2016 Abnormal uterine bleeding 04/14/2015 Disease of thyroid gland 11/21/2014 Immunizations Immunization Administration Dates Next Due Tdap 07/20/2021 Surgical History Surgery Date Site/Laterality Comments OVARIAN CYSTECTOMY x2, 2001 and 2007 COLONOSCOPY x3- last one 11/2022 VAGINAL DELIVERY epidural, 2008 and 2011 Medical History Medical History Date Comments Personal history of other di seases of the circulatory system History of varicose veins - (Added by TW Conv) Family History Medical History Relation Name Comments No Known Problems Father Colon cancer Mother Colon cancer - (Added by TW Conv) Relation Name Status Comments Father Mother Social History Tobacco Use Types Packs/Day Years Used Date Smoking Tobacco: Never Passive Smoke Exposure: Past Smokeless Tobacco: Never Alcohol Use Standard Drinks/Week Comments No 0 (1 standard drink = 0.6 oz pur e alcohol) AUDIT-C Answer Date Recorded Q1: How often do you have a drink containing alc ohol? Monthly or less 04/19/2023 Q2: How many drinks containi ng alcohol do you have on a typical day when you are drinking? 1 or 2 04/19/2023 Q3: How often do you have si x or more drinks on one occasion? Never 04/19/2023 Personal Safety Answer Date Recorded Have you ever been in or are you currently in a harmful physical or emotional relationship or is someone making you feel afraid or unsafe? 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 Gender Identity Female 07/31/2019 10:45 AM CDT Sexual Orientation Not on file Obstetrics History Para Term AB IAB SAB Ectopic Multiple Livin g Live Births 2 2 2 2 2 Date Outcome GA Total Labor Labor/2nd/3rd Weight Sex Type Anes PTL Leigh Ann A1 A5 Name Clin 2008 Term 40w 0d M Vag-S pont Epidura l N Living Complications:None 2011 Term 40w 0d M Vag-S pont Epidura l N Living Complications:None Last Filed Vital Signs Vital Sign Reading Time Taken Comments Blood Pressure 124/76 04/19/2023 1:30 PM CDT Pulse 71 04/19/2023 1:35 PM CDT Temperature 36 C (96.8 F) 04/19/2023 9:30 AM CDT Respiratory Rate 22 04/19/2023 1:35 PM CDT Oxygen Saturation 96% 04/19/2023 1:35 PM CDT Inhaled Oxygen Concentration - - Weight 72.6 kg (160 lb) 03/23/2023 9:10 AM CDT Height 170.2 cm (5' 7) 03/23/2023 9:10 AM CDT Body Mass Index 25.06 03/23/2023 9:10 AM CDT Plan of Treatment Health Maintenance Due Date Last Done Comments Depression Screening 1978 Hepatitis C Screening 1978 Hepatitis B Screening 02/27/1996 Breast Cancer Screening-Mammogram 11/13/2009 11/13/2008 Cervical Cancer Screening 05/15/20192017, 05/15/2018, 11/21/2014 Regular Well Visit/Exam 18-64 07/17/2020, 05/15/2018 Covid-19 Vaccine (4 - 2023-2 5 season) 2024 10/05/2021, 02/28/2021, 02/07/2021 Influenza Vaccine (#1) 2025 Colon Cancer Screening-Colonoscopy 11/13/2026 11/13/2016 DTaP/Tdap/Td Vaccine (2 - Td or Tdap) 07/20/2031 07/20/2021 Pneumococcal vaccine <65 Aged Out No longer eligible based on patient's age to complete this topic Procedures Procedure Name Priority Date/Time Associated Diagnosis Comments IMAGING PAP AND HPV MRNA E6/E7 Routine 05/15/2018 12:00 AM CDT COLONOSCOPY Routine 11/13/2016 MAMMOGRAPHY Routine 11/13/2008 from Last 3 Months or Most Recently Relevant to Health Maintenance Results * Imaging Pap and HPV mRNA E6/E7 (05/15/2018 12:00 AM CDT) Report status CANCELED [facility] [place] Comment:Result canceled by t he ancillary CLINICAL INFORMATION: [facility] Comment:Information not prov ided LMP UNKNOWN [facility] Previous Pap UNKNOWN [facility] Prev. Bx [facility] Comment:Information not prov ided SOURCE: [facility] - Comment:Cervix, Endocervix Pap, specimen adequacy [facility] - Comment: Satisfactory for evaluation. Endocervical/transformation zone component present. Age and/or menstrual status not provided Pap, general categorization [facility]ED [facility] Comment:Result canceled by t marito ancillary HPV interp [facility] Comment:Negative for intraep ithelial lesion or malignancy. Infection: [facility]CELED [facility] [place] Comment:Result canceled by t marito ancillary COMMENTS [facility] - Comment: This Pap test has been evaluated with computer assisted technology. Wheel Alignment Technician [facility] - Comment: MLO, CT(ASCP) CT screening location: [place] [address] [place] [address] Review technical illustrator CANCELED [facility] [place] Comment:Result canceled by t marito ancillary Pathologist [facility]ED [facility] [place] Comment:Result canceled by t marito ancillary Comment [facility] [place] Comment: EXPLANATORY NOTE: The Pap is a screening test for cervical cancer. It is not a diagnostic test and is subject to false negative and false positive results. It is most reliable when a satisfactory sample, regularly obtained, is submitted with relevant clinical findings and history, and when the Pap result is evaluated along with historic and current clinical information. Human papillomavirus RNA, High Risk E6/E7 Not Detected Not Detected [facility] [place] Comment: This test was performed using the APTIMA HPV Assay ([employer] This assay detects E6/E7 viral messenger RNA (mRNA) from 14 high-risk HPV types (16,18,31,33,35,39,45,51,52,56,58,59,66,68). The analytical performance characteristics of this assay have been determined by [employer]. The modifications have not been cleared or approved by the FDA. This assay has been validated pursuant to the CLIA regulations and is used for clinical purposes. 05/15/2018 05/28/2018 8:5 7 AM CDT Narrative [facility] - 05/31/2018 2:41 PM CDT FASTING: UNKNOWN Resulting Agency Comment Performing Organization Information: Site ID: [place] Name: [facility] Address: [address] [place] [address] Director: Feliciano Aleman D.O., MPH Site ID: [facility] Address: [address] [place] [address] Director: Vimal Osorio Sierra Chance MD LAB PATHOLOGY ORDERABLE S Final Result [facility] [place] [facility] [place] * [facility] COLONOSCOPY (11/13/2016) Colonoscopy Abnormal Historical Provider HEALTH MAINTENANCE Final Result * [facility] MAMMOGRAPHY (11/13/2008) Mammogram Normal Historical Provider HEALTH MAINTENANCE Final Result from Last 3 Months or Most Recently Relevant to Health Maintenance Insurance [facility] AETNA [facility] HMO [facility] Care Teams Hop Farmer Relationship Specialty Start Date End Date Feliciano Krause MD [address] [facility] [address] [place] [address] PCP - General Family Medicine 03/13/23
[2025-07-01 19:32] VITALS: BP 124/96; PULSE 75; RESP 16; TEMP 36.4; O2SAT 99
--- NOTE | 2025-07-01 20:27 | ED.EXTPRO ---
HPI - Extremity Problem General Chief complaint: Extremity Problem,Nontraumatic Stated complaint: ingrown toenail Time Seen by Provider: 07/01/25 19:54 Source: patient Mode of arrival: ambulatory Limitations: no limitations History of Present Illness HPI Narrative: Patient is a 45-year-old female who presents the ED with concern for infection to her left 1st toe. Patient reports she was attempting to cut her ingrown toenail on her left 1st toe a few days ago. She may have cut it too short. She then developed redness, swelling to the medial aspect of her left 1st toe. Has noticed some pus draining from the toe nail edge. Denies fevers. Denies history of diabetes. Related Data Home Medications ?Medication ?Instructions ?Recorded ?Confirmed ?Last Taken ?Type levonorgestrel (Mirena) 1 device intrauterine ONCE 03/08/23 02/21/25 Unknown History Allergies Allergy/AdvReac Type Severity Reaction Status Date / Time ciprofloxacin Allergy Unknown rash Verified 07/01/25 19:43 clindamycin Allergy Unknown unknown Verified 07/01/25 19:43 doxycycline Allergy Unknown abdominal Verified 07/01/25 19:43 pain erythromycin base Allergy Unknown rash Verified 07/01/25 19:43 iodine Allergy Unknown rash Verified 07/01/25 19:43 Penicillins Allergy Unknown Skin Verified 07/01/25 19:43 irritation Review of Systems Review of Systems: All systems reviewed & are unremarkable except as noted in HPI. All systems reviewed & are unremarkable except as noted in HPI and below PMFSH Past Medical History Medical History HLD (hyperlipidemia) Family history of colon cancer Hypothyroidism Surgical History Surgical History H/O bilateral salpingectomy S/P left oophorectomy with dermoid H/O ovarian cystectomy x 2 Family History Family History Mother Carcinoma of colon Family history of cardiovascular disease Father Family history of malignant neoplasm of kidney Social History Social History Smoking status: Never smoker Second hand tobacco smoke exposure: No Alcohol intake: current Alcohol use details: VERY RARE Substance use: never Substance use type: does not use Do You Feel Safe in your Home?: Yes Lack of Transportation: No Lack of Food: Never True Current Housing: I Have Housing Concerned About Future Housing: No Difficulty Paying Gas/Electric Bills: No Difficulty Paying for Meds: No Currently Unemployed: No Education: Don't Know Difficulty w/ Childcare or Family Care: No Living arrangements: with family Occupation/Education: occupation Gender identity (if verbalized by the patient): Female Sexual Orientation (if Verbalized by the Patient): Straight or Heterosexual Spiritual care concerns: No Exam Narrative: GENERAL: Well appearing, well-nourished, non-toxic, in no acute distress. HEAD: Normocephalic, atraumatic. RESPIRATORY: Airway patent, respirations nonlabored. CARDIOVASCULAR: Regular rate and rhythm. Pedal pulses intact and easily palpable MUSCULOSKELETAL: Moves all extremities. No gross deformities. Mild swelling, erythema, focal tenderness to medial edge of left 1st toenail plate. Small vesicular lesion with purulent drainage in this area. SKIN: Warm, dry, normal color. NEURO: A&O X3. Speech clear. PSYCHIATRIC: Appropriate mood and affect. Normal interaction. Course Vital Signs Vital signs: Vital Signs Temperature 97.6 F 07/01/25 19:32 Pulse Rate 75 07/01/25 19:32 Respiratory Rate 16 07/01/25 19:32 Blood Pressure 124/96 H 07/01/25 19:32 Pulse Oximetry 99 07/01/25 19:32 Oxygen Delivery Room Air 07/01/25 19:32 Temperature 97.8 F 07/01/25 20:49 Pulse Rate 81 07/01/25 20:49 Respiratory Rate 18 07/01/25 20:49 Blood Pressure 127/73 07/01/25 20:49 Pulse Oximetry 97 07/01/25 20:49 Oxygen Delivery Room Air 07/01/25 19:32 MDM - Extremity (Nontraumatic) MDM Narrative Medical decision making narrative: Exam consistent with paronychia. Will start on antibiotics. Discussed warm soaks. Given return precautions. Bactrim started in the ED. Patient also given dose of Diflucan for yeast infection prevention. Medical Records Attestation: I reviewed the patient's medical records. Discharge Plan Discharge Clinical Impression: Paronychia of great toe of left foot Patient Disposition: Home Condition: Stable Instructions: Antibiotic Form, Paronychia (ED) Additional Instructions: Recommend washing wound twice daily with soap and water. Recommend frequent warm water soaks to toe/wound. Take antibiotics as prescribed. Follow-up with your primary care doctor for further evaluation if needed. Return for new or worsening concerns. Patient Language: Citizen Of [place] Prescriptions: New sulfamethoxazole-trimethoprim [Bactrim DS] 800-160 mg tablet 1 tablet PO Q12H 7 Days Qty: 14 0RF No Action Mirena 21 mcg/24 hours (8 yrs) 52 mg intrauterine device 1 device I-UTERINE ONCE Rx Instructions: Inserted 2020 ergocalciferol (vitamin D2) 1,250 mcg (50,000 unit) capsule 1,250 mcg PO WEEKLY Qty: 12 0RF Patient Comments: PT TAKES ON MONDAY fluconazole 150 mg tablet 150 mg PO ONCE Qty: 2 0RF Rx Instructions: May repeat does after 72 hours for persistent symptoms levothyroxine 112 mcg tablet See Rx Instructions .ROUTE .COMPLEX Qty: 90 3RF Dose Instruction: TAKE 1 TABLET BY MOUTH EVERY DAY Patient Comments: TAKES AT HS Rx Instructions: TAKE 1 TABLET BY MOUTH EVERY DAY rosuvastatin 5 mg tablet See Rx Instructions .ROUTE .COMPLEX Qty: 90 2RF Dose Instruction: TAKE 1 TABLET BY MOUTH EVERY DAY Rx Instructions: TAKE 1 TABLET BY MOUTH EVERY DAY Follow-up/Referrals: Feliciano Krause MD [Primary Care Provider, Family Practice] Time of Disposition: 20:37
--- OUTSIDE RECORDS SUMMARY | 2025-07-01 20:31 | XMS_ITS | Clinical Summary ---
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 Director Of Strategic Sales [facility] - Comment: MLO, CT(ASCP) CT screening location: [place] [address] [place] [address] Review warehouse order selector CANCELED [facility] - [place] Comment:Result canceled by t marito ancillary Pathologist [facility]CELED [facility] - [place] Comment:Result canceled by t marito ancillary Comment [facility] - [place] Comment: EXPLANATORY NOTE: [...] High Risk E6/E7 Not Detected Not Detected [facility] [place] Comment: This test was performed using the APTIMA HPV Assay ([employer] This assay detects E6/E7 viral messenger RNA (mRNA) from 14 high-risk HPV types (16,18,31,33,35,39,45,51,52,56,58,59,66,68). The analytical performance characteristics of this assay have been determined by [facility]. The modifications have not been cleared or approved by the FDA. This assay has been validated pursuant to the CLIA regulations and is used for clinical purposes. 05/15/2018 05/28/2018 8:5 7 AM CDT Narrative [facility] - 05/31/2018 2:41 PM CDT FASTING: UNKNOWN Resulting Agency Comment Performing Organization Information: Site ID: [place] Name: [facility] Address: [address] [place] [address] Director: Feliciano Aleman D.O., MPH Site ID: Name[facility] Address: [address] [place] [address] Director: Vimal Osorio Sierra Chance MD LAB PATHOLOGY ORDERABLE S Final Result [facility] [place] [facility] * [facility] COLONOSCOPY (11/13/2016) Colonoscopy Abnormal Historical Provider HEALTH MAINTENANCE Final Result * [facility] MAMMOGRAPHY (11/13/2008) Mammogram Normal Historical Provider HEALTH MAINTENANCE Final Result from Last 3 Months or Most Recently Relevant to Health Maintenance Insurance [facility] AETNA [facility] H[facility] Care Teams Last Pattern Grader Relationship Specialty Start Date End Date Feliciano Krause MD [address] [facility] [address] [place] [address] PCP - General Family Medicine 03/13/23
[2025-07-01] MEDS: SULFAMETHOXAZOLE/TRIMETHOPRIM 800/160 MG DS TABLET 1 TAB PO (20:42)
[2025-07-01] MEDS: FLUCONAZOLE 150 MG TABLET PO (20:47)
[2025-07-01 20:49] VITALS: BP 127/73; PULSE 81; RESP 18; TEMP 36.6; O2SAT 97
== END 2025-07-01 20:50 | disposition home or self-care (01) ==
LOC: ANHED 20:30
PROVIDERS: Emergency Provider Physician Assistant; PCP Family Medicine
DX: L03.032 Cellulitis of left toe (principal); E78.5 Hyperlipidemia, unspecified; E03.9 Hypothyroidism, unspecified; Z90.79 Acquired absence of other genital organ(s); Z90.721 Acquired absence of ovaries, unilateral; Z97.5 Presence of (intrauterine) contraceptive device; Z79.899 Other long term (current) drug therapy
CPT/HCPCS: 99283; A9270